=== PATIENT | female | born 1960 | race Caucasian/White ===

== ENCOUNTER 2020-06-07 09:15 | Outpatient (CLI) | payer OTHER, SELFPAY ==
--- NOTE | ~2020-06-07 | MM_ITS ---
EXAMINATION: MM screening amlathi BI w jes HISTORY: Screening TECHNIQUE: Craniocaudal and mediolateral oblique 3-D tomosynthesis images were obtained and synthetic 2-D images were generated. CAD analysis was submitted and interpreted. COMPARISON: Comparison to multiple prior studies sequentially, with oldest reviewed study dated 06/04. BREAST PARENCHYMAL COMPOSITION: There are scattered areas of fibroglandular density. FINDINGS: There is no evidence of suspicious mass, calcification, or architectural distortion to sugg est malignancy in either breast. There has been no suspicious interval change. IMPRESSION: 1. No mammographic evidence of malignancy. 2. Recommend routine screening mammography in one year. BI-RADS Category 1: Negative Reviewed, dictated and finalized at location A.
== END 2020-06-07 09:16 | disposition home or self-care (01) ==
PROVIDERS: PCP Obstetrics & Gynecology; Visit Provider Obstetrics & Gynecology
DX: Z12.31 Encounter for screening mammogram for malignant neoplasm of breast (principal)
CPT/HCPCS: 77063; 77067

== ENCOUNTER 2021-09-04 01:53 | Day surgery (SDC) | payer OTHER, SELFPAY ==
[2021-08-20 09:52] VITALS: BMI 34.0
--- NOTE | 2021-09-03 10:27 | PM.HPGS ---
History of Present Illness History of Present Illness Consent: Risks, benefits, and alternatives have been discussed and questions answered. Patient agrees to proceed with procedure. Chief complaint: neoplasm screening, GERD Narrative: Rosibel Jalloh is a 61 year old female Referred for investigation of persistent acid reflux symptoms. She has been taking pantoprazole 40 mg daily for several years and also supplements that with famotidine in the evening. Despite that she has breakthrough symptoms from time to time. Anti-reflux surgery had been discussed in the past but she opted not to do that. She is also due for colon cancer screening. Review of Systems Review of Systems: All systems reviewed & are unremarkable except as noted in HPI and below PMFSH Past Medical History Medical History Chronic GERD HTN (hypertension) Hyperlipidemia Obesity Social History Social History Smoking status: Never smoker Alcohol intake: never Substance use: never Substance use type: does not use Living arrangements: with family Spiritual care concerns: No Meds Home Medications and Allergies Home Medications Medication Instructions Recorded Confirmed Type ergocalciferol (vitamin D2) 1,250 1 cap PO DAILY 08/20/21 08/20/21 History mcg (50,000 unit) capsule pantoprazole 40 mg tablet,delayed 40 mg PO DAILY 08/20/21 08/20/21 History release rosuvastatin 20 mg tablet 20 mg PO DAILY 08/20/21 08/20/21 History telmisartan 40 mg tablet 40 mg PO DAILY 08/20/21 08/20/21 History trazodone 50 mg tablet 50 mg PO DAILY 08/20/21 08/20/21 History Allergies Allergy/AdvReac Type Severity Reaction Status Date / Time No Known Allergies Allergy Verified 09/04/21 07:33 Exam Const: General: alert Orientation/consciousness: patient oriented x3 Resp: Auscultation: clear to auscultation bilaterally Cardio: Rhythm: regular rhythm GI: GI Palp: Yes Soft to palpation and No Tenderness to palpation present (GI) Neuro: General: patient oriented x3 Assessment and Plan Assessment and plan (1) GERD (gastroesophageal reflux disease): Code(s): K21.9 - Gastro-esophageal reflux disease without esophagitis Status: Acute Assessment and Plan: EGD with possible biopsy or dilatation or cautery. (2) Colon cancer screening: Code(s): Z12.11 - Encounter for screening for malignant neoplasm of colon Status: Acute Assessment and Plan: Colonoscopy with possible biopsy or polypectomy or cautery or injection of substances.
--- NOTE | 2021-09-03 12:46 | WPDANESEPPF ---
Anes - Initial Pre Proc Eval Procedure: Operation Date: 09/04/21 08:30 Proposed Procedures p Esophagogastroduodenoscopy & Screening Colonoscopy - Bryant Olivera MD Date/Time: 09/03/21 12:46 Surgeon: Bryant Olivera MD Pre Op Diagnosis: neoplasm screening, GERD Patient Data Age: 61 Gender: F Height: 1.63 m Weight: 90 kg Allergies Allergy/AdvReac Type Severity Reaction Status Date / Time No Known Allergies Allergy Verified 09/04/21 07:33 Home Medications Medication Instructions Recorded Confirmed Type ergocalciferol (vitamin D2) 1,250 1 cap PO DAILY 08/20/21 08/20/21 History mcg (50,000 unit) capsule pantoprazole 40 mg tablet,delayed 40 mg PO DAILY 08/20/21 08/20/21 History release rosuvastatin 20 mg tablet 20 mg PO DAILY 08/20/21 08/20/21 History telmisartan 40 mg tablet 40 mg PO DAILY 08/20/21 08/20/21 History trazodone 50 mg tablet 50 mg PO DAILY 08/20/21 08/20/21 History Patient hx anesthesia problems: none Family hx anesthesia problems: none Results Review: All pre-operative results and documents have been reviewed as part of the pre-operative evaluation. [facility] Past Medical History Medical History (Updated 09/03/21 @ 12:47 by Jeramie Garcia MD) Chronic GERD HTN (hypertension) Hyperlipidemia Obesity Social History Social History Smoking status: Never smoker Alcohol intake: never Substance use: never Substance use type: does not use Living arrangements: with family Spiritual care concerns: No Anes - Eval Final PreProcedure Day of Procedure 09/03/21 12:46 Patient weight: obese Heart: regular rate and rhythm Lungs: clear to auscultation and normal air movement Airway: Mallampati scale class II Neurological: alert and oriented Last oral intake: >/= 8 hours ASA classification: III Emergent: no Anesthetic plan: proceed Anesthesia type and monitoring: general GIVS Results Review: All pre-operative results and documents have been reviewed as part of the pre-operative evaluation. Informed Consent: The patient's anesthetic plan and its attendant risks and benefits were discussed with the patient/family/POA. Questions were solicited and answers provided to the satisfaction of the patient/family/POA.
[2021-09-04 07:34] VITALS: BP 125/82; PULSE 97; RESP 18; TEMP 36.2; O2SAT 100
[2021-09-04] MEDS: LACTATED RINGERS 1,000 ML 150 ML IV CONT (07:43)
--- NOTE | 2021-09-04 08:52 | SUR.OPER ---
EGD ENDED 844, COLONOSCOPY STARTED 852
[2021-09-04 09:05] VITALS: BP 130/71; PULSE 97; RESP 18; O2SAT 100
[2021-09-04 09:15] VITALS: BP 121/74; PULSE 68; RESP 17; O2SAT 98
[2021-09-04 09:25] VITALS: BP 150/88; PULSE 77; RESP 17; O2SAT 98
== END 2021-09-04 09:35 | disposition home or self-care (01) ==
PROVIDERS: Visit Provider Internal Medicine Gastroenterology
PROC: 0DJ08ZZ Inspection of Upper Intestinal Tract, Via Natural or Artificial Opening Endoscopic (ICD-10-PCS; CPT 43235; principal; 2021-09-04 08:30)
DX: Z12.11 Encounter for screening for malignant neoplasm of colon (principal); D12.4 Benign neoplasm of descending colon; K64.8 Other hemorrhoids; K21.00 Gastro-esophageal reflux disease with esophagitis, without bleeding; K22.10 Ulcer of esophagus without bleeding; K44.9 Diaphragmatic hernia without obstruction or gangrene; I10 Essential (primary) hypertension; E78.5 Hyperlipidemia, unspecified; E66.9 Obesity, unspecified; Z68.33 Body mass index [BMI] 33.0-33.9, adult
CPT/HCPCS: 43239; 45380; 88305; J2704; J7120

== ENCOUNTER 2022-08-26 16:24 | Outpatient (CLI) | payer OTHER, SELFPAY ==
--- NOTE | ~2022-08-26 | MM_ITS ---
EXAMINATION: MM screening malathi BI w jes HISTORY: Screening mammogram TECHNIQUE: Craniocaudal and mediolateral oblique 3-D tomosynthesis images were obtained and synthetic 2-D images were generated. CAD analysis was submitted and interpreted. COMPARISON: June 07, 2020, September 01, 2018, July 27, 2017 bilateral screening mammogram examinations BREAST PARENCHYMAL COMPOSITION: The breasts are almost entirely fatty. FINDINGS: There is no evidence of suspicious mass, calcification, or architectural distortion to sugg est malignancy in either breast. There has been no suspicious interval change. IMPRESSION: 1. No mammographic evidence of malignancy. 2. Recommend routine screening mammography in one year. BI-RADS Category 1: Negative Reviewed, dictated and finalized at location A.
== END 2022-08-26 16:25 | disposition home or self-care (01) ==
LOC: ANHIMG 16:27
PROVIDERS: Visit Provider Obstetrics & Gynecology Gynecology
DX: Z12.31 Encounter for screening mammogram for malignant neoplasm of breast (principal)
CPT/HCPCS: 77063; 77067